=== PATIENT | male | born 1985 | race Caucasian/White ===

== ENCOUNTER 2016-06-09 15:21 | Emergency (ER) | payer SELFPAY ==
[2016-06-09] MEDS ORDERED: HYDROmorphone 1 MG/ML Syringe IVPUSH ONE (15:45)
[2016-06-09] MEDS ORDERED: Metoclopramide 10 MG/2 ML SDV IVPUSH ONE (15:45)
[2016-06-09] MEDS ORDERED: Sodium Chloride 0.9% 1,000 ML IV ONE (15:45)
--- NOTE | 2016-06-09 15:45 | EDM.PDOC ---
ED HPI GI/ABDOMINAL - General Chief Complaint: Abdominal Pain Stated Complaint: ABDOMINAL PAIN BLOOD IN STOOL Time Seen by Provider: 06/09/16 15:38 Source of Information: Reports: Patient History Limitations: Reports: No limitations - History of Present Illness INITIAL COMMENTS - FREE TEXT/NARRATIVE: 30-year-old male presents the ED with acute onset of severe left will-abdominal pain with passage of bright red blood and clots. Patient states he felt okay when he went to work at 0900 hours this morning. But hour ago he developed left lower quadrant abdominal cramping type pain. Upon having a bowel movement he found it to be all blood mixed with clots. There was no stool. Subsequently he continued to feel unwell with increasing abdominal cramping pain. [place] faint and therefore his boss let them go home from work early. He had a friend bring him to the hospital is he did not feel safe to drive. Patient has no rectal pain. No posterior views history vertigo bowel or inflammatory bowel disorder. No history to suggest peptic ulcer disease. Symptom Onset Date: 06/09/16 Symptom Onset Time: 14:50 Timing/Duration: Reports: Minutes:, Sudden onset Location: other (crane-red blood per rectum with clots) Quality: Reports: cramping, stabbing Severity: moderate Improves with: Denies: defecating Context: Denies: sick contact, bad/questionable food, out of country travel, recent surgery, recent trauma, lifting, activity/exercise, other Associated Symptoms: Reports: loss of appetite, nausea/vomiting (nausea without vomiting.he is holding onto the emesis bag at the time of exam.). 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 (see below) - Related Data Allergies/ADRs: Allergies Allergy/AdvReac Type Severity Reaction Status Date / Time acetaminophen [From Percocet] Allergy Nausea and Verified 06/09/16 15:32 Vomiting cyclobenzaprine HCl Allergy Headache Verified 06/09/16 15:32 [From Flexeril] oxycodone HCl [From Percocet] Allergy Nausea and Verified 06/09/16 15:32 Vomiting Home Meds: Home Meds Hydrocortisone Acetate [Anusol-Hc] 25 mg RC ATDISCHARGE #5 supp.rect 06/09/16 [ Rx] Past Medical History HEENT History: Reports: Impaired vision Respiratory History: Reports: Asthma Musculoskeletal History: Reports: Other (see below) Other Musculoskeletal History: RIGHT KNEE ARTHRITIS-CHRONDALMYLASIA Psychiatric History: Reports: Addiction - Infectious Disease History Infectious Disease History: Reports: Chicken pox - Past Surgical History GI Surgical History: Reports: Appendectomy Social & Family History - Tobacco Use Smoking Status *Q: Current Every Day Smoker Years of Tobacco use: 10 Packs/Tins Daily: 0.5 Used Tobacco, but Quit: No Second Hand Smoke Exposure: No - Caffeine Use Caffeine Use: Reports: Soda - Recreational Drug Use Recreational Drug Use: Yes Drug Use in Last 12 Months: Yes Recreational Drug Type: Reports: Marijuana/Hashish Other Recreational Drug Type: used this AM at 0730 Recreational Drug Use Frequency: Daily - Living Situation & Occupation Living situation: Reports: single Occupation: employed ED ROS GENERAL - Review of Systems Review Of Systems: See Below Constitutional: Reports: weakness, decreased appetite. Denies: fever, chills, malaise HEENT: Reports: No symptoms Respiratory: Reports: cough (smoker cough usually has some brownish sputum to it no hemoptysis) Cardiovascular: Reports: No symptoms Endocrine: Reports: no symptoms GI/Abdominal: Reports: Other (bowel function is usually loose to semi-formed. Did have blood in the stool once in the past about 2 months ago which he blamed on hemorrhoids.) : Reports: no symptoms Musculoskeletal: Reports: no symptoms Skin: Reports: no symptoms Neurological: Reports: no symptoms ED EXAM, GI/ABD - Physical Exam Exam: See Below Exam Limited By: No limitations General Appearance: alert, WD/WN, moderate distress (in obvious discomfort.) Eyes: bilateral: normal appearance (no jaundice) Throat/Mouth: Normal inspection (diffuse facial acne), Normal lips, Normal oropharynx Head: other Neck: normal inspection, supple, non-tender, full range of motion. No: lymphadenopathy (L), lymphadenopathy (R) Respiratory/Chest: no respiratory distress, lungs clear, no accessory muscle use , chest non-tender, wheezing (occasional expiratory wheeze.) Cardiovascular: normal peripheral pulses, regular rate, rhythm, no edema, no murmur GI/Abdominal: hypoactive bowel sounds, tenderness (severe tenderness to even light percussion over the left hemiabdomen and left lower quadrant of the abdomen.), guarding, rebound (left lower quadrant.), other (abdominal pain worsens with light cough.) (Male) Exam: No hernia Rectal (Males) Exam: Other Back Exam: normal inspection. No: CVA tenderness (L), CVA tenderness (R) Extremities: normal inspection, normal range of motion, non-tender, normal capillary refill Neurological: alert, oriented, CN II-XII intact, normal cognition, normal gait Psychiatric: normal affect, normal mood Skin Exam: Warm, Dry, Intact, Normal color, Other (facial acne) ED ABDOMINAL/GI PROCEDURES - Additional/Other Procedure(s) Procedure(s) (Free Text): rigid sigmoidoscopy performed with the use of Urojet lidocaine applied to the anal tissues. Scope introduced up to 20 cm just at the negotiation of the sigmoid flexure. No bleeding encountered passed 6 cm. Stool encountered was dark green in color. The mucosa has a normal healthy color to it. On removal of the scope there is evidence of a ruptured internal hemorrhoid at the 3:00 position. There is no anal fissure. Patient will be discharged to home when Versed wears off. Course - Vital Signs Last Recorded V/S: Last Vital Signs Temp 36.8 C 06/09/16 15:28 Pulse 77 06/09/16 15:28 Resp 20 06/09/16 15:28 BP Pulse Ox 99 06/09/16 15:28 Orthostatic Blood Pressure [ 123/80 Standing] Orthostatic Blood Pressure [ 121/72 Supine] - Orders/Labs/Meds Orders: Active Orders 24 hr Category Date Time Status Orthostatic Vital Signs [RC] ASDIRECTED Care 06/09/16 15:47 Active Abdomen 1V Flat [CR] Stat Exams 06/09/16 15:47 Taken Sodium Chloride 0.9% [Saline Flush] Med 06/09/16 17:42 Active 10 ml FLUSH ONETIME PRN Medication Orders Sodium Chloride (Saline Flush) 10 ml FLUSH ONETIME PRN PRN Reason: IV FLUSH Last Admin: 06/09/16 18:06 Dose: 10 ml Labs: Laboratory Tests 06/09/16 06/09/16 06/09/16 Range/Units 15:40 15:40 15:40 WBC 8.21 (4.23-9.07) K/mm3 RBC 5.21 (4.63-6.08) M/mm3 Hgb 15.9 (13.7-17.5) gm/L Hct 46.6 (40.1-51.0) % MCV 89.4 (79.0-92.2) fl MCH 30.5 (25.7-32.2) pg MCHC 34.1 (32.2-35.5) g/dl RDW Std Deviation 43.2 (35.1-43.9) fL Plt Count 259 (163-337) K/mm3 MPV 9.3 L (9.4-12.3) fl Neutrophils % (Manual) 64 H (40-60) % Band Neutrophils % 0 (0-10) % Lymphocytes % (Manual) 27 (20-40) % Atypical Lymphs % 0 % Monocytes % (Manual) 2 (2-10) % Eosinophils % (Manual) 6 (0.8-7.0) % Basophils % (Manual) 1 (0.2-1.2) Platelet Estimate Adequate RBC Morph Comment Normal PT 10.6 (8.0-13.0) SECONDS INR 1.00 APTT 28 (22-36) SECONDS Sodium 139 (136-145) mEq/L Potassium 3.7 (3.5-5.1) mEq/L Chloride 103 (98-107) mEq/L Carbon Dioxide 25 (21-32) mEq/L Anion Gap 14.7 (5-15) BUN 12 (7-18) mg/dL Creatinine 1.0 (0.7-1.3) mg/dL Est Cr Clr Drug Dosing TNP Estimated GFR (MDRD) > 60 (>60) mL/min BUN/Creatinine Ratio 12.0 L (14-18) Glucose 101 (74-106) mg/dL Calcium 9.3 (8.5-10.1) mg/dL Total Bilirubin 0.4 (0.2-1.0) mg/dL AST 16 (15-37) U/L ALT 26 (16-63) U/L Alkaline Phosphatase 69 (46-116) U/L C-Reactive Protein 0.2 (<1.0) mg/dL Total Protein 7.4 (6.4-8.2) g/dl Albumin 4.1 (3.4-5.0) g/dl Globulin 3.3 gm/dL Albumin/Globulin Ratio 1.2 (1-2) Lipase 171 (73-393) U/L Urine Color (Yellow) Urine Appearance (Clear) Urine pH (5.0-8.0) Ur Specific [place] (1.005-1.030) Urine Protein (Negative) Urine Glucose (UA) (Negative) Urine Ketones (Negative) Urine Occult Blood (Negative) Urine Nitrite (Negative) Urine Bilirubin (Negative) Urine Urobilinogen (0.2-1.0) Ur Leukocyte Esterase (Negative) Urine RBC (0-5) /hpf Urine WBC (0-5) /hpf Ur Epithelial Cells (0-5) /hpf Urine Bacteria (FEW) /hpf Urine Mucus (FEW) /hpf Urine Opiates Screen (NEGATIVE) Ur Buprenorphine Scrn (NEGATIVE) Ur Oxycodone Screen (NEGATIVE) Urine Methadone Screen (NEGATIVE) Ur Propoxyphene Screen (NEGATIVE) Ur Barbiturates Screen (NEGATIVE) Ur Tricyclics Screen (NEGATIVE) Ur Phencyclidine Scrn (NEGATIVE) Ur Amphetamine Screen (NEGATIVE) U Methamphetamines Scrn (NEGATIVE) U Benzodiazepines Scrn (NEGATIVE) U Cocaine Metab Screen (NEGATIVE) U Marijuana (THC) Screen (NEGATIVE) H. pylori IgG Antibody (NEGATIVE) Blood Type 06/09/16 06/09/16 06/09/16 Range/Units 15:40 15:40 16:55 WBC (4.23-9.07) K/mm3 RBC (4.63-6.08) M/mm3 Hgb (13.7-17.5) gm/L Hct (40.1-51.0) % MCV (79.0-92.2) fl MCH (25.7-32.2) pg MCHC (32.2-35.5) g/dl RDW Std Deviation (35.1-43.9) fL Plt Count (163-337) K/mm3 MPV (9.4-12.3) fl Neutrophils % (Manual) (40-60) % Band Neutrophils % (0-10) % Lymphocytes % (Manual) (20-40) % Atypical Lymphs % % Monocytes % (Manual) (2-10) % Eosinophils % (Manual) (0.8-7.0) % Basophils % (Manual) (0.2-1.2) Platelet Estimate RBC Morph Comment PT (8.0-13.0) SECONDS INR APTT (22-36) SECONDS Sodium (136-145) mEq/L Potassium (3.5-5.1) mEq/L Chloride (98-107) mEq/L Carbon Dioxide (21-32) mEq/L Anion Gap (5-15) BUN (7-18) mg/dL Creatinine (0.7-1.3) mg/dL Est Cr Clr Drug Dosing Estimated GFR (MDRD) (>60) mL/min BUN/Creatinine Ratio (14-18) Glucose (74-106) mg/dL Calcium (8.5-10.1) mg/dL Total Bilirubin (0.2-1.0) mg/dL AST (15-37) U/L ALT (16-63) U/L Alkaline Phosphatase (46-116) U/L C-Reactive Protein (<1.0) mg/dL Total Protein (6.4-8.2) g/dl Albumin (3.4-5.0) g/dl Globulin gm/dL Albumin/Globulin Ratio (1-2) Lipase (73-393) U/L Urine Color (Yellow) Urine Appearance (Clear) Urine pH (5.0-8.0) Ur Specific [place] (1.005-1.030) Urine Protein (Negative) Urine Glucose (UA) (Negative) Urine Ketones (Negative) Urine Occult Blood (Negative) Urine Nitrite (Negative) Urine Bilirubin (Negative) Urine Urobilinogen (0.2-1.0) Ur Leukocyte Esterase (Negative) Urine RBC (0-5) /hpf Urine WBC (0-5) /hpf Ur Epithelial Cells (0-5) /hpf Urine Bacteria (FEW) /hpf Urine Mucus (FEW) /hpf Urine Opiates Screen Presumptive positive H (NEGATIVE) Ur Buprenorphine Scrn Negative (NEGATIVE) Ur Oxycodone Screen Negative (NEGATIVE) Urine Methadone Screen Negative (NEGATIVE) Ur Propoxyphene Screen Negative (NEGATIVE) Ur Barbiturates Screen Negative (NEGATIVE) Ur Tricyclics Screen Negative (NEGATIVE) Ur Phencyclidine Scrn Negative (NEGATIVE) Ur Amphetamine Screen Negative (NEGATIVE) U Methamphetamines Scrn Negative (NEGATIVE) U Benzodiazepines Scrn Negative (NEGATIVE) U Cocaine Metab Screen Negative (NEGATIVE) U Marijuana (THC) Screen Presumptive positive H (NEGATIVE) H. pylori IgG Antibody Negative (NEGATIVE) Blood Type O NEGATIVE 06/09/16 Range/Units 16:55 WBC (4.23-9.07) K/mm3 RBC (4.63-6.08) M/mm3 Hgb (13.7-17.5) gm/L Hct (40.1-51.0) % MCV (79.0-92.2) fl MCH (25.7-32.2) pg MCHC (32.2-35.5) g/dl RDW Std Deviation (35.1-43.9) fL Plt Count (163-337) K/mm3 MPV (9.4-12.3) fl Neutrophils % (Manual) (40-60) % Band Neutrophils % (0-10) % Lymphocytes % (Manual) (20-40) % Atypical Lymphs % % Monocytes % (Manual) (2-10) % Eosinophils % (Manual) (0.8-7.0) % Basophils % (Manual) (0.2-1.2) Platelet Estimate RBC Morph Comment PT (8.0-13.0) SECONDS INR APTT (22-36) SECONDS Sodium (136-145) mEq/L Potassium (3.5-5.1) mEq/L Chloride (98-107) mEq/L Carbon Dioxide (21-32) mEq/L Anion Gap (5-15) BUN (7-18) mg/dL Creatinine (0.7-1.3) mg/dL Est Cr Clr Drug Dosing Estimated GFR (MDRD) (>60) mL/min BUN/Creatinine Ratio (14-18) Glucose (74-106) mg/dL Calcium (8.5-10.1) mg/dL Total Bilirubin (0.2-1.0) mg/dL AST (15-37) U/L ALT (16-63) U/L Alkaline Phosphatase (46-116) U/L C-Reactive Protein (<1.0) mg/dL Total Protein (6.4-8.2) g/dl Albumin (3.4-5.0) g/dl Globulin gm/dL Albumin/Globulin Ratio (1-2) Lipase (73-393) U/L Urine Color Yellow (Yellow) Urine Appearance Clear (Clear) Urine pH 6.0 (5.0-8.0) Ur Specific [place] > or = 1.030 (1.005-1.030) Urine Protein Trace H (Negative) Urine Glucose (UA) Negative (Negative) Urine Ketones Negative (Negative) Urine Occult Blood Negative (Negative) Urine Nitrite Negative (Negative) Urine Bilirubin Negative (Negative) Urine Urobilinogen 0.2 (0.2-1.0) Ur Leukocyte Esterase Negative (Negative) Urine RBC 0-5 (0-5) /hpf Urine WBC 0-5 (0-5) /hpf Ur Epithelial Cells 0-5 (0-5) /hpf Urine Bacteria Occasional (FEW) /hpf Urine Mucus Few (FEW) /hpf Urine Opiates Screen (NEGATIVE) Ur Buprenorphine Scrn (NEGATIVE) Ur Oxycodone Screen (NEGATIVE) Urine Methadone Screen (NEGATIVE) Ur Propoxyphene Screen (NEGATIVE) Ur Barbiturates Screen (NEGATIVE) Ur Tricyclics Screen (NEGATIVE) Ur Phencyclidine Scrn (NEGATIVE) Ur Amphetamine Screen (NEGATIVE) U Methamphetamines Scrn (NEGATIVE) U Benzodiazepines Scrn (NEGATIVE) U Cocaine Metab Screen (NEGATIVE) U Marijuana (THC) Screen (NEGATIVE) H. pylori IgG Antibody (NEGATIVE) Blood Type Meds: Medications Generic Name Dose Route Start Last Admin Trade Name Freq PRN Reason Stop Dose Admin Sodium Chloride 10 ml 06/09/16 17:42 06/09/16 18:06 Saline Flush FLUSH 10 ml ONETIME PRN Administration IV FLUSH Discontinued Medications Generic Name Dose Route Start Last Admin Trade Name Freq PRN Reason Stop Dose Admin Diatrizoate Meglum/Diatrizoate Sod 90 ml 06/09/16 17:42 06/09/16 18:06 Gastrografin 37% PO 06/09/16 17:43 90 ml ONETIME ONE Administration Diphenhydramine HCl 25 mg 06/09/16 15:46 06/09/16 15:57 Benadryl IVPUSH 06/09/16 15:47 25 mg ONETIME ONE Administration Hydromorphone HCl 1 mg 06/09/16 15:45 06/09/16 15:57 Dilaudid IVPUSH 06/09/16 15:46 1 mg ONETIME ONE Administration Hydromorphone HCl 0.5 mg 06/09/16 18:21 06/09/16 18:26 Dilaudid IVPUSH 06/09/16 18:22 0.5 mg ONETIME ONE Administration Sodium Chloride 1,000 mls @ 500 mls/hr 06/09/16 15:45 06/09/16 15:56 Normal Saline IV 06/09/16 17:44 500 mls/hr ONETIME ONE Administration Iopamidol 125 ml 06/09/16 17:42 06/09/16 18:06 Isovue-300 (61%) IVPUSH 06/09/16 17:43 125 ml ONETIME ONE Administration Lidocaine HCl 10 ml 06/09/16 18:52 06/09/16 18:56 Xylocaine 2% Jelly MUCMEM 06/09/16 18:53 10 ml ONETIME ONE Administration Metoclopramide HCl 10 mg 06/09/16 15:45 06/09/16 15:55 Reglan IVPUSH 06/09/16 15:46 10 mg ONETIME ONE Administration Midazolam HCl 2 mg 06/09/16 18:58 06/09/16 19:05 Versed 1 Mg/Ml IVPUSH 06/09/16 18:59 2 mg ONETIME ONE Administration - Radiology Interpretation Free Text/Narrative:: 30-year-old male presents the ED with acute onset of severe left lower quadrant abdominal pain associated with a bowel movement containing only blood and blood clots. Eyebright red. Cramping persists. He feels nauseated. He feels faint. He was at work when this event occurred. No history of similar occurrence. Only previous surgery is that of an appendectomy done through laparoscope. On examination he is in significant discomfort. Very tender to light percussion and palpation over the left hemiabdomen in the distribution of the sigmoid colon. Query diverticulitis with perforation. Plan IV normal saline at 500 mils per hour. Orthostatic BPs to be checked. Given Dilaudid 1 mg IV with Reglan 10 mg IV and Benadryl 25 mg IV. Labs to be done to include type and screen. Likely going to need CT scan of abdomen with oral and IV contrast.one view of the abdomen to be done. - Re-Assessments/Exams Free Text/Narrative Re-Assessment/Exam: 06/09/16 16:15 patient is not orthostatic. He has not yet gone to x-ray. 06/09/16 16:23labs are back. Total white count is 8.21 with 64% neutrophils and no bands. Hemoglobin is 15.9 hematocrit is 46.6. Platelets 29,000. Coags are normal. H. pylori negative BUN is 12 which is against an upper GI bleed. Anion gap is 14.7. Awaiting x-ray so that he can go ahead with CT of the abdomen and pelvis. 06/09/16 16:52patient feels a dull pain is now down to one or 2. No side effects from the medications. As above all the labs were normal. His KUB showed increased stool within the cecum only. There are a few nonspecific dilated loops of small bowel in the left upper quadrant. No sign of bowel obstruction or free air. Plan Will proceed with CT of the abdomen and pelvis with oral and IV contrast. 06/09/16 18:20 patient had a little bit more pain after coming back from the CT exam. Given Dilaudid 0.5 mg IV for further pain relief. CT of the abdomen and pelvis on my inspection shows contrast did reach the cecum but it did not go throughout the colon. There is a few nonspecific air-fluid levels within the mid portions of the small bowel. The visualized portions of the sigmoid colon showed a few diverticula with no active diverticulitis. The liver pancreas gallbladder and adrenal glands and spleen all appeared to be normal. Therefore CT did not declare or help define the bleeding came from. I think is fairly clear it came from the lower colon. 06/09/16 18:52discussed the findings of the CT with the patient. Decision made to proceed with a rigid sigmoidoscopy to identify possible source of bright red rectal bleeding with clots. My impression this is most likely an internal hemorrhoid that ruptured. Patient was advised of the nature of the procedure and consent for procedure signed. Will have topical lidocaine or Urojet applied to the anus and into the anal canal. Will proceed with the procedure shortly. 06/09/16 19:22 Rigid sigmoidoscopy performed up to 20 cm. Patient tolerated the procedure very well. There was no bleeding past 6 cm and the mucosa appeared normal. Stool that was encountered were to start green in color without any blood. Negotiated the sigmoid flexure with no problems. On withdrawal of the scope identified clot at 3:00 position had an internal hemorrhoid. No other hemorrhoids were present. There is no anal fissure. Patient was reassured. He will build to be discharged home once the bursa that is worn off. He'll use Anusol-HC suppositories once at bedtime for 6 days. He can start tonight at bedtime. Patient is elected to the ball moments following the oral contrast as it traverses his colon. Followup indicated only if he has further significant bleeding per rectum Departure - Departure Time of Disposition: 20:00 Disposition: Home, Self-Care 01 Condition: fair Clinical Impression: Internal bleeding hemorrhoids, Lower GI bleeding Prescriptions: Hydrocortisone Acetate [Anusol-Hc] 25 mg RC ATDISCHARGE #5 supp.rect Forms: ED Department Discharge, Return to Work/School Form Additional Instructions: evaluation in the emergency room today in regard to development of acute lower GI bleeding with blood and large amount of clots extruded into the toilet bowl water work today. Associated diffuse lower left quadrant abdominal cramping pain. Initial examination suggested significant tenderness in the left lower quadrant of the abdomen worrisome for a perforation of the colon. Treated with IV fluids and pain medications and antinausea medication. Lab work done through to be within normal limits. X-ray of the abdomen also found to be normal. There is a little increased hard stool in the right colon. CT of the abdomen and pelvis was therefore performed with oral and IV contrast and it was completely normal other than increased stool in the right hemicolon. We therefore went ahead with a rigid sigmoidoscopy and identify the source of bleeding as a ruptured internal hemorrhoid at the 3:00 position. You're to expect a couple of normal side as the oral contrast that was used for CT goes through the bowel. May place Anusol suppository into the rectum tonight at bedtime and then every night at bedtime for another 5 days to help he'll be hemorrhoid. Expect a couple bowel movements and the next day or 2 to contain some blood. Usually lasts only a couple of days. Bleeding after this insignificant quantity would demand further investigation by way of the surgeon. There are no restrictions at this time as to diet or fluids. Suggest off work tomorrow and return to work the following day. - My Orders Last 24 Hours: My Active Orders 06/09/16 15:47 Orthostatic Vital Signs [RC] ASDIRECTED Abdomen 1V Flat [CR] Stat 06/09/16 17:42 Sodium Chloride 0.9% [Saline Flush] 10 ml FLUSH ONETIME PRN - Assessment/Plan Last 24 Hours: My Active Orders 06/09/16 15:47 Orthostatic Vital Signs [RC] ASDIRECTED Abdomen 1V Flat [CR] Stat 06/09/16 17:42 Sodium Chloride 0.9% [Saline Flush] 10 ml FLUSH ONETIME PRN
[2016-06-09] MEDS ORDERED: diphenhydrAMINE 50 MG/ML SDV IVPUSH ONE (15:46)
[2016-06-09] MEDS ORDERED: Sodium Chloride 0.9% 10 ML Syringe FLUSH PRN (17:42)
[2016-06-09] MEDS ORDERED: Diatrizoate Meglumine/Diatrizoate Sodium 37% 120 ML Bottle PO ONE (17:42)
[2016-06-09] MEDS ORDERED: Iopamidol 612 MG/ML 150 ML Bottle IVPUSH ONE (17:42)
[2016-06-09] MEDS ORDERED: HYDROmorphone 0.5 MG/0.5 ML Syringe IVPUSH ONE (18:21)
--- NOTE | 2016-06-09 18:33 | CT ---
CT abdomen and pelvis Technique: Multiple axial sections were obtained from above the dome of the diaphragm inferiorly through the pubic symphysis. Intravenous and oral contrast was utilized. Delayed images were also obtained through the bladder. Comparison: Previous abdominal x-ray performed earlier on the same day and previous CT pelvis exam of 03/06/16 as well as previous abdominal and pelvic CT exam of 09/09/15. Findings: Visualized lung bases shows minimal dependent atelectasis. Liver shows no focal parenchymal abnormality. Spleen appears within normal limits. Adrenal glands show no nodule. Pancreas appears within normal limits. Gallbladder shows no calcified gallstones. Kidneys show symmetric contrast enhancement. No hydronephrosis or mass is identified within either kidney. Aorta shows no aneurysmal dilatation. No retroperitoneal adenopathy or mesenteric abnormalities are seen. No pelvic mass or adenopathy is seen. Delayed images shows contrast within the bladder. No bowel dilatation is seen. No discrete bowel abnormality identified on this exam to explain the patient's hematochezia. Appendix is not seen. Bone window settings were reviewed which appear within normal limits for the patient's age. Impression: 1. Incidental findings. Nothing acute is identified on CT study of the abdomen and pelvis. No etiology is seen for the patient's hematochezia. Diagnostic code #2
[2016-06-09] MEDS ORDERED: Lidocaine 2% Jelly 10 ML Urojet MUCMEM ONE (18:52)
[2016-06-09] MEDS ORDERED: Midazolam 1 MG/ML 2 ML SDV IVPUSH ONE (18:58)
[2016-06-09] MEDS ORDERED: Hydrocortisone Acetate 25 MG Supp RECTAL ONE (19:24)
[2016-06-09 20:20] VITALS: BP 109/80
--- NOTE | 2016-06-10 08:17 | CR ---
Abdomen: Supine view of the abdomen was obtained. Comparison: No previous abdominal x-ray. Bowel gas pattern appears normal. No abnormal calcifications or soft tissue abnormality is seen. Bony structures are unremarkable. Impression: 1. Unremarkable supine abdominal x-ray. Diagnostic code #1
== END 2016-06-09 20:06 | disposition home or self-care (01) ==
LOC: JD.ED 15:21
DX: K64.8 Other hemorrhoids (principal); K92.2 Gastrointestinal hemorrhage, unspecified; F17.210 Nicotine dependence, cigarettes, uncomplicated; Z90.49 Acquired absence of other specified parts of digestive tract; Z88.6 Allergy status to analgesic agent; Z88.8 Allergy status to other drugs, medicaments and biological substances
CPT/HCPCS: 36415; 45300; 74000; 74177; 80053; 81001; 83690; 85025; 85610; 85730; 86140; 86677; 86900; 86901; 96361; 96374; 96375; 96376; 99285; A9270; G0478; J1170; J1200; J2250; J2765; J7040; J7050; Q9963; Q9967; 80306; 99284-25